=== PATIENT | male | born 1970 ===

== ENCOUNTER 2022-10-30 06:29 | Day surgery (SDC) | payer BC, OTHER ==
[2022-10-30] MEDS ORDERED: Midazolam 1 MG/ML 2 ML SDV IV ONE ×7 (06:30→07:38)
[2022-10-30] MEDS ORDERED: fentaNYL 100 MCG/2 ML SDV IV ONE ×5 (06:30→07:40)
[2022-10-30] MEDS ORDERED: Midazolam 1 MG/ML 2 ML SDV ONE (07:04)
[2022-10-30] MEDS ORDERED: fentaNYL 100 MCG/2 ML SDV ONE (07:05)
[2022-10-30] MEDS ORDERED: Dextrose 5%-0.45% NaCl 1,000 ML IV SCH (07:30)
[2022-10-30 08:47] LABS: HEMATOCRIT 38.2 % (40.0-54.0)
[2022-10-30 10:37] LABS: HEMATOCRIT 37.5 % (40.0-54.0); HEMOGLOBIN 12.7 g/dL (14.0-18.0)
== END 2022-10-30 11:20 | disposition home or self-care (01) ==
LOC: DL.ENDO 06:29
PROVIDERS: ATTEND Internal Medicine Gastroenterology
DX: Z12.11 Encounter for screening for malignant neoplasm of colon (principal); K64.8 Other hemorrhoids; K21.9 Gastro-esophageal reflux disease without esophagitis; E11.9 Type 2 diabetes mellitus without complications; F32.A Depression, unspecified; I10 Essential (primary) hypertension; E78.5 Hyperlipidemia, unspecified; M19.90 Unspecified osteoarthritis, unspecified site; F41.1 Generalized anxiety disorder; G47.00 Insomnia, unspecified; E83.42 Hypomagnesemia; E53.8 Deficiency of other specified B group vitamins; Z98.890 Other specified postprocedural states; Z90.49 Acquired absence of other specified parts of digestive tract
CPT/HCPCS: 36415; 85014; 85018; J2250; J3010; J7042